=== PATIENT | male | born 1995 | race Caucasian/White ===

== ENCOUNTER 2022-05-02 20:04 | Emergency (ER) | payer SELFPAY ==
[2022-05-02] MEDS ORDERED: Sodium Chloride 0.9% 10 ML Syringe FLUSH PRN (20:40)
[2022-05-02 21:54] LABS: ESTIMATED GFR 56 mL/min (>60)
[2022-05-02 22:14] LABS: CORONAVIRUS COVID-19 NAA NEGATIVE (NEGATIVE)
== END 2022-05-02 22:25 | disposition home or self-care (01) ==
LOC: JD.ED 20:04
DX: R06.02 Shortness of breath (principal); R05.9 Cough, unspecified; I48.91 Unspecified atrial fibrillation; Z88.5 Allergy status to narcotic agent; Z88.8 Allergy status to other drugs, medicaments and biological substances; Z86.16 Personal history of COVID-19; Z87.891 Personal history of nicotine dependence; Z20.822 Contact with and (suspected) exposure to COVID-19
CPT/HCPCS: 0241U; 36415; 71046; 80053; 84484; 85025; 85379; 86140; 93005; 99284